=== PATIENT | female | born 1970 | race Caucasian/White ===

== ENCOUNTER 2021-07-08 14:44 | Emergency (ER) | payer SELFPAY ==
[2021-07-08 16:16] VITALS: BP 176/94
[2021-07-08] MEDS ORDERED: SODIUM CHLORIDE 0.9% 1000 ML 1,000 ML IV ONE (16:36)
--- NOTE | 2021-07-08 16:36 | Emergency Department Report ---
ED Neuro Deficit HPI - General Chief Complaint: Neuro Symptoms/Deficit Stated Complaint: STUTTERING AFTER COVID SHOT Time Seen by Provider: 07/08/21 16:19 Source: patient Mode of arrival: Ambulatory Limitations: No Limitations - History of Present Illness Initial Comments: Patient presents for possible stroke. She basically had a coronavirus shot yesterday. She has now developed stuttering which is never happened to her before. She does not feel anxious. She does not have a headache. She states that her right arm is somewhat sore. She does state that she feels dizzy when she gets up and walks. She also feels weak all over. There has been no chest pain or shortness of breath. There is no vomiting or diarrhea. She has had no cough or congestion. Her sister, who is a nurse told her to come in to be seen because of the new onset stuttering. She called the location where she was given the vaccine. They also recommended she get seen. - Related Data Allergies/Adverse Reactions: Allergies Allergy/AdvReac Type Severity Reaction Status Date / Time No Known Allergies Allergy Verified 07/08/21 16:10 ED Review of Systems ROS: Stated complaint: STUTTERING AFTER COVID SHOT Other details as noted in HPI Comment: All other systems reviewed and negative Constitutional: denies: fever Eyes: denies: vision change ENT: denies: throat pain Respiratory: denies: cough Cardiovascular: denies: chest pain Endocrine: denies: unexplained weight loss Gastrointestinal: denies: abdominal pain Genitourinary: denies: dysuria Musculoskeletal: denies: back pain Skin: denies: rash Neurological: as per HPI Hematological/Lymphatic: denies: easy bruising ED Past Medical Hx - Past Medical History Previous Medical History?: Yes Additional medical history: Chronic pain syndrome - Surgical History Past Surgical History?: Yes Additional Surgical History: BACK SURGERY - Family History Family history: no significant ED Neuro Physical Exam - General Limitations: No Limitations, Other (Pulse ox is noted to normal. Is not hypoxic.) General appearance: alert, in no apparent distress Suspected Stroke: No - Head Head exam: Present: atraumatic, normocephalic, normal inspection - Eye Eye exam: Present: normal appearance, PERRL, EOMI. Absent: scleral icterus - ENT ENT exam: Present: normal exam, mucous membranes moist, normal external ear exam - Neck Neck exam: Present: normal inspection. Absent: meningismus - Respiratory Respiratory exam: Present: normal lung sounds bilaterally. Absent: respiratory distress - Cardiovascular Cardiovascular Exam: Present: regular rate, normal rhythm - GI/Abdominal GI/Abdominal exam: Present: soft. Absent: tenderness - Extremities Exam Extremities exam: Present: full ROM. Absent: pedal edema - Back Exam Back exam: Absent: CVA tenderness (R), CVA tenderness (L) - Neurological Exam Neurological exam: Present: alert, oriented X3, CN II-XII intact, normal gait, reflexes normal. Absent: motor sensory deficit - NIHSS Assessment Interval: Baseline 1a. Level of Consciousness: alert/keenly responsive 1b. LOC Questions: answers both correctly 1c. LOC Commands: performs tasks correctly 2. Best Gaze: normal 3. Visual: no visual loss 4. Facial Palsy: normal symmetrical movement 5b. Motor Arm Right: no drift 5a. Motor Arm Left: no drift 6a. Motor Leg Left: no drift 6b. Motor Leg Right: no drift 7. Limb Ataxia: absent 8. Sensory: normal 9. Best Language: no aphasia 10. Dysarthria: normal 11. Extinction/Inattention: no abnormality Total Score: 0 Stroke Severity: No Stroke Symptoms - Psychiatric Psychiatric exam: Present: normal affect, normal mood - Skin Skin exam: Present: warm, dry ED Course Vital Signs 07/08/21 16:10 Temperature 99.5 F Pulse Rate 96 H Respiratory 16 Rate Blood Pressure 176/94 [Left] O2 Sat by Pulse 98 Oximetry - Reevaluation(s) Reevaluation #1: 07/08/21 16:36 IV, labs, and CT were ordered. Reevaluation #2: 07/08/21 19:[address] was noted and the patient was discharged. - Lab Data Result diagrams: 07/08/21 17:20 07/08/21 16:36 Lab Results 07/08/21 07/08/21 Range/Units 16:36 17:20 WBC 5.4 (4.5-11.0) K/mm3 RBC 4.34 (3.65-5.03) M/mm3 Hgb 11.7 (10.1-14.3) gm/dl Hct 36.2 (30.3-42.9) % MCV 83 (79-97) fl MCH 27 L (28-32) pg MCHC 32 (30-34) % RDW 14.3 (13.2-15.2) % Plt Count 186 (140-440) K/mm3 Sodium 139 (137-145) mmol/L Potassium 4.5 (3.6-5.0) mmol/L Chloride 105.5 (98-107) mmol/L Carbon Dioxide 17 L (22-30) mmol/L Anion Gap 21 mmol/L BUN 13 (7-17) mg/dL Creatinine 0.8 (0.6-1.2) mg/dL Estimated GFR > 60 ml/min BUN/Creatinine Ratio 16 % Glucose 78 (65-100) mg/dL Calcium 8.3 L (8.4-10.2) mg/dL - Radiology Data Radiology results: report reviewed - Medical Decision Making Patient presented with generalized weakness and new onset of stuttering. She thought it could be related to the Covid vaccine. There is no evidence of stroke, tumor, mass, bleed, or other cranial lesion. She does not have any obvious metabolic derangement. At this time, she thinks that she is feeling better. She does not have any stuttering here. She had reported dizziness upon standing, but did not have vertiginous symptoms. I was not concerned for cerebellar stroke. She did feel better and had no dizziness upon standing after IV hydration. She is not anemic. There is no evidence of hypoglycemia. She was treated symptomatically and discharged. Critical Care Time: No Critical care attestation.: If time is entered above; I have spent that time in minutes in the direct care of this critically ill patient, excluding procedure time. ED Disposition Clinical Impression: Generalized weakness, Stuttering, Lightheaded Disposition: 01 HOME / SELF CARE / HOMELESS Is pt being admited?: No Does the pt Need Aspirin: No Condition: Stable Instructions: Weakness, Dizziness, [id number] Additional Instructions: Drink plenty water. Use Tylenol for your sore arm. Follow-up with your regular physician for recheck and further management. Drink plenty of fluids. Referrals: PRIMARY [facility] [Referring] - 3-5 Days JUANITA LOMBARDI MD [Staff Physician] - 3-5 Days
[2021-07-08 17:29] LABS: Hematocrit 36.2 % (30.3-42.9); Hemoglobin 11.7 gm/dl (10.1-14.3); Mean Corpuscular HGB Conc 32 % (30-34); Mean Corpuscular Volume 83 fl (79-97); Platelet Count 186 K/mm3 (140-440); Red Blood Count 4.34 M/mm3 (3.65-5.03); Red Cell Distribution Width 14.3 % (13.2-15.2)
[2021-07-08 17:49] LABS: BUN/Creatinine Ratio 16; Blood Urea Nitrogen 13 mg/dL (7-17); Calcium 8.3 mg/dL (8.4-10.2); Hemolysis Index 90
--- NOTE | 2021-07-08 18:29 | Cat Scan Report ---
NONENHANCED CT SCAN OF THE HEAD: INDICATION / CLINICAL INFORMATION: 51 years Female; new onset stuttering, weakness. TECHNIQUE: Routine CT head without contrast. All CT scans at this location are performed using CT dos e reduction for ALARA by means of automated exposure control. COMPARISON: None. FINDINGS: Please note the artifactual probably from the head clips and rollers are significantly obsc uring the details; please repeat the CT after removing clips and rollers BRAIN / INTRACRANIAL CONTENTS: Streaky artifacts from the head clips in her shoulders obscuring the d etails; no midline shift; no large hemorrhage or space taking lesion; ventricular system is normal; p lease repeat the CT CRANIOCERVICAL JUNCTION: No significant abnormality. ORBITS: No significant abnormality of visualized orbits. SINUSES / MASTOIDS: No significant abnormality of the visualized paranasal sinuses or mastoid air ladan ls. ADDITIONAL FINDINGS: None. IMPRESSION: Streaky artifacts from the head clips and rollers significantly obscuring the details; no midline sh ift; please repeat the CT after removing the head clips and rollers Signer Name: Trice Morgan MD Signed: 07/08/2021 6:25 PM Workstation Name: [id number]
--- NOTE | 2021-07-08 19:49 | Cat Scan Report ---
NONENHANCED CT SCAN OF THE HEAD: INDICATION / CLINICAL INFORMATION: 51 years Female; Inconclusive first CT due to artifact. TECHNIQUE: Routine CT head without contrast. All CT scans at this location are performed using CT dos e reduction for ALARA by means of automated exposure control. COMPARISON: None. FINDINGS: BRAIN / INTRACRANIAL CONTENTS: CT images were repeated after removing the hair clips and rollers. No acute hemorrhage, mass effect, midline shift, hydrocephalus, or acute, large territorial infarct. No chronic infarct or focal atrophy. Normal brain volume and ventricular/sulcal size for age. No sign ificant white matter abnormality. CRANIOCERVICAL JUNCTION: No significant abnormality. ORBITS: No significant abnormality of visualized orbits. SINUSES / MASTOIDS: No significant abnormality of the visualized paranasal sinuses or mastoid air ladan ls. ADDITIONAL FINDINGS: None. IMPRESSION: No focal parenchymal lesion Signer Name: Trice Morgan MD Signed: 07/08/2021 7:44 PM Workstation Name: [id number]
== END 2021-07-08 20:26 | disposition home or self-care (01) ==
LOC: ED 14:44
DX: F80.81 Childhood onset fluency disorder (principal); R53.1 Weakness; R42 Dizziness and giddiness
CPT/HCPCS: 36415; 70450; 80048; 85027; 99284; J7030